=== PATIENT | male | born 1965 | race Caucasian/White ===

== ENCOUNTER 2021-04-07 07:37 | Emergency (ER) | payer OTHER, SELFPAY ==
[~2021-04-07] VITALS: Ht 175.3 cm; Wt 77.1 kg
[2021-04-07 07:40] VITALS: BP_SYST 194
--- NOTE | 2021-04-07 07:40 | NUR ---
Patient to ER bed H1 to gown for evaluation. Side rails up.
--- NOTE | 2021-04-07 07:42 | NUR ---
Pt brought by , A&Ox4,ambulatory, pt presents to ER with L chest pain /discomfort since 04/05/2021,respirations even and unlabored, cap refill <3, VSS, will cont to monitor.
--- NOTE | 2021-04-07 07:46 | NUR ---
Faxed EKG to [facility] ER.
--- NOTE | 2021-04-07 07:48 | NUR ---
Dr Andrade evaluating patient at bedside
[2021-04-07] MEDS ORDERED: HEPARIN SODIUM,PORCINE 5,000 UNITS/ML VIAL ONE (07:56)
[2021-04-07] MEDS ORDERED: NITROGLYCERIN 0.4 MG TAB.SUBL SL ONE (08:00)
[2021-04-07] MEDS ORDERED: HEPARIN IV FLUSH 1 UNIT/ML PF 6ML SYRINGE IV ONE (08:00)
[2021-04-07] MEDS ORDERED: ASPIRIN 325 MG TABLET PO ONE (08:00)
[2021-04-07] MEDS ORDERED: ASPIRIN 81 MG TAB.CHEW PO ONE (08:00)
--- NOTE | 2021-04-07 08:07 | NUR ---
Medications administered as ordered. Confirmed dosage of Aspirin and route of administration for Heparin. Patient on monitoring specialist. HR 97, BP 177/103. EKG confirmed STEMI. Patient awake, alert and oriented x 3; reports c/p began 2 days ago after exercise. No c/p reported currently. Patient to transfer per STEMI protocol.
[2021-04-07 08:10] VITALS: BP_SYST 194
--- NOTE | 2021-04-07 08:12 | NUR ---
Patient to be transferred to [facility]. Is being transferred due to higher level of care. Receiving facility has accepting physician and available space. ER physician has signed transfer form. Patient or responsible democrat has agreed to transfer and signed form. Patient belongings inventoried and will be sent with patient. Copy of nursing notes, lab reports, EKG, Physicians Orders and X-rays to be sent with patient. Report called to MD at receiving facility. Receiving physician is MD. Ambulance service has been called for transfer. ETA is STAT .
[2021-04-07 08:33] LABS: CALCIUM 8.8 mg/dL (8.4-11.0); CREATININE 0.86 mg/dL (0.55-1.30); POTASSIUM 3.4 mmol/L (3.5-5.1)
[2021-04-07 08:37] LABS: BASOPHILS % (AUTO) 0.6 % (0.0-2.0); EOSINOPHILS # (AUTO) 0.1 K/uL (0.0-0.4); EOSINOPHILS % (AUTO) 1.7 % (0.0-4.0); HEMATOCRIT 46.1 % (36-54); HEMOGLOBIN 16.5 g/dL (14.0-18.0); LYMPHOCYTES % (AUTO) 32.7 % (20.5-51.5); MEAN CORPUSCULAR HEMOGLOBIN 34 pg (27-31); MEAN CORPUSCULAR HGB CONC 36 % (32-36); MEAN CORPUSCULAR VOLUME 95 fL (79.0-98.0); MONOCYTES # (AUTO) 0.9 K/uL (0.0-1.0); MONOCYTES % (AUTO) 14.2 % (1.7-9.3); NEUTROPHILS # (AUTO) 3.2 K/uL (1.8-7.7); NEUTROPHILS % (AUTO) 50.8 % (40.0-70.0); PLATELET COUNT (AUTO) 188 K/uL (130-430); RED BLOOD CELL COUNT(AUTO) 4.85 MIL/uL (4.2-6.2); RED CELL DISTRIBUTION WIDTH 13.1 % (9.0-15.0); WHITE BLOOD COUNT (AUTO) 6.2 K/uL (4.8-10.8)
[2021-04-07 08:40] LABS: ALBUMIN 3.8 g/dL (3.4-4.8); PHOSPHORUS 2.6 mg/dL (2.7-4.5); TOTAL BILIRUBIN 0.4 mg/dL (0.0-1.0)
[2021-04-07 09:10] LABS: CKMB RELATIVE INDEX 0.6 (0.0-2.9); CREATINE KINASE MB 2.6 ng/mL (0-3.6)
== END 2021-04-07 08:12 ==
LOC: SED 07:37
DX: I21.29 ST elevation (STEMI) myocardial infarction involving other sites (principal); Z20.822 Contact with and (suspected) exposure to COVID-19
CPT/HCPCS: 36415; 80053; 82550; 82553; 83735; 83880; 84100; 84484; 85025; 87426; 93005; 96374; 99291; J1644